=== PATIENT | female | born 1980 | race Caucasian/White ===

== ENCOUNTER 2018-05-21 09:02 | Emergency (ER) | payer OTHER ==
--- OUTSIDE RECORDS SUMMARY | 2018-05-21 09:15 | XMS REPORT ---
:1980 External Reference #:[id number] Author Organization [facility] Address [address], [address] [place] [address] Phone [phone] Care Team Providers Name Role Phone Kell Moore MD Care Team Information Outreach Assistant Unavailable Kell Moore MD Primary Care Physician Unavailable Payers Type Date Identification Numbers Payment Provider Subscriber Commercial Effective: Policy Number: Donaldo Sagastume 2005 [id number] Expires: 2015 Group Name: [employer] [address] [address] PayID: [id number] MACI Mcadams [id number] Commercial Policy Number: [id number] Lifetime Benefit Solution Vandana Sagastume Group Number: [id number] [address] [address] PayID: [id number] MACI Mcadams [id number] Problems Date Description Provider Status Onset: 12/28/2014 Mononeuritis Kell Moore MD Active Onset: 02/07/2015 Idiopathic peripheral neuropathy Kell Moore MD Active Onset: 08/20/2015 Acute serous otitis media Kell Moore MD Active Onset: 03/07/2015 Multiple sclerosis Kell Moore MD Active Onset: 02/21/2015 Edema Kell Moore MD Active Family History Date Family Member(s) Problem(s) Comments Father 60 Father Diabetes Mother No Current Problems Mother 58 Children 2 Siblings 1 Social History Type Date Description Comments Marital Status Lives With Lives With Children Pets 2 cats Occupation floral mgr, 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 Vitamin D3 09/09 Hx Capsules 5000Unit 1 by mouth Oscar, every day MD Kell - 04/07 Return To Work 09/09 Hx Vandana september G35 Oscar return to MD Kell - work, 01/28 full-time, modified schedule; please allow her to sit every hour for 7.5 minutes as needed. Amoxicillin/Cl 08/19 Hx Tablets 875-125mg 20tab 1 by mouth H65.01 Melgarulanate /2015 s twice a day MD Kell Potassium - 09/09 Prednisone 08/14 Hx Tablets 20mg 10tab 2 by mouth H69.91 Vincent, s every day x 5 Jenniferl - days eigh, [facility] 08/17 Nasonex 08/14 Hx Suspension 50mcg/Act 34gm one spray H69.91 [place] each nostril Jenniferl - twice a day eigh, [facility] 09/09 Antipyrine-Wilson 08/14 Hx Solution 5.4-1.4% QS one to two H69. beena, zocaine drops right Jenniferl - ear twice a eigh, [facility] 09/09 day as needed for pain Copaxone 04/11 Hx Soln 40mg/ml 1 ml im tid Oscar, Prefill roch. MD Kell - Syringe neurologist 06/11 Out Of Work 03/07 Hx due to G35 Oscar neurological MD Kell - illness 09/09 begiining 03/08/15, extending to 09/13/15. Triamterene/Hy 02/21 Hx Capsules 37.5-25mg 30cap take 1 by R60.9 lai Moore s mouth every MD Kell renny - morning 03/07 Prednisone 00/00 Hx Tablets 10mg take by mouth Unknown /0000 as directed - 03/07 Nortriptyline 00/00 Hx Capsules 10mg take 1 to 3 Unknown HCL /0000 capsules - Every Night 06/11 as directed Triamterene/Hy 00/00 Hx Capsules 37.5-25mg take 1 as R60.9 Unknown drochlorothiaz /0000 needed renny - 06/11 Copaxone 00 Hx Soln 40mg/ml every other Unknown /0000 Prefill day 1ML/Im - Syringe 04/07 Nortriptyline 00 Hx Capsules 10mg 2 PO hs Unknown HCL /0000 - 04/07 Immunizations CPT Code Status Date Vaccine Lot # [id number] Given 04/07/2016 Influenza Virus Vaccine Split Virus Use For [id number] Individual 3Yr Older [id number] Given 06/11/2015 Influenza Vaccine (Fluzone) Age 3 And Older [id number] Given 06/11/2015 Pneumococcal Conjugate Vaccine 13 Valent For [id number] Intramuscular Use 97063 Given 04/12/2009 flu vaccination [id number] Given 04/12/2009 H1N1 Immuniation Adminstration 98844 Given 02/06/2009 flu vaccination Vital Signs Date Vital Result Comment 05/13/2017 BP Systolic Sitting Left Arm 112 mmHg BP Diastolic Sitting Left Arm 78 mmHg Body Temperature 97.3 F Heart Rate 70 /min Height 65 inches 5'5" Weight 208.00 lb BMI (Body Mass Index) 34.6 kg/m2 BSA (Body Surface Area) 2.01 m2 [place] body weight in kilograms 57 O2 % BldC Oximetry 98 % 01/28/2017 BP Systolic 103 mmHg BP Diastolic 70 mmHg Heart Rate 70 /min Height 65.25 inches 5'5.25" Weight 201.00 lb BMI (Body Mass Index) 33.2 kg/m2 BSA (Body Surface Area) 1.99 m2 [place] body weight in kilograms 57 04/07/2016 BP Systolic Sitting Left Arm 122 mmHg BP Diastolic Sitting Left Arm 82 mmHg Body Temperature 98.9 F Heart Rate 76 /min Respiratory Rate 16 /min Height 65.25 inches 5'5.25" Weight 199.00 lb BMI (Body Mass Index) 32.9 kg/m2 BSA (Body Surface Area) 1.98 m2 [place] body weight in kilograms 57 Last Menstrual Period [id number] 09/10/2015 BP Systolic Sitting Left Arm 122 mmHg BP Diastolic Sitting Left Arm 74 mmHg Heart Rate 78 /min Respiratory Rate 19 /min Height 67 inches 5'7" Weight 199.00 lb BMI (Body Mass Index) 31.2 kg/m2 BSA (Body Surface Area) 2.02 m2 08/20/2015 BP Systolic Sitting Left Arm 118 mmHg BP Diastolic Sitting Left Arm 72 mmHg Body Temperature 99.0 F Height 67 inches 5'7" Weight 198.00 lb BMI (Body Mass Index) 31.0 kg/m2 BSA (Body Surface Area) 2.01 m2 08/15/2015 BP Systolic 112 mmHg BP Diastolic 66 mmHg Body Temperature 98.2 F Height 67 inches 5'7" Weight 196.00 lb BMI (Body Mass Index) 30.7 kg/m2 BSA (Body Surface Area) 2.00 m2 06/11/2015 BP Systolic 108 mmHg BP Diastolic 84 mmHg Heart Rate 60 /min Respiratory Rate 21 /min Weight 194.38 lb 03/07/2015 BP Systolic 110 mmHg BP Diastolic 80 mmHg Heart Rate 76 /min Respiratory Rate 20 /min Weight 191.00 lb 02/21/2015 BP Systolic Sitting Left Arm 104 mmHg BP Diastolic Sitting Left Arm 66 mmHg Heart Rate 76 /min Respiratory Rate 19 /min Height 67 inches 5'7" Weight 185.00 lb BMI (Body Mass Index) 29.0 kg/m2 BSA (Body Surface Area) 1.96 m2 02/07/2015 BP Systolic 110 mmHg BP Diastolic 78 mmHg Body Temperature 99.4 F Heart Rate 76 /min Respiratory Rate 20 /min Height 67 inches 5'7" Weight 187.00 lb BMI (Body Mass Index) 29.3 kg/m2 BSA (Body Surface Area) 1.97 m2 12/28/2014 BP Systolic 110 mmHg BP Diastolic 72 mmHg Heart Rate 68 /min Respiratory Rate 20 /min Height 67 inches 5'7" Weight 187.38 lb BMI (Body Mass Index) 29.3 kg/m2 BSA (Body Surface Area) 1.97 m2 Results Test Date Test Result H/L Range Note CBS W/Automated Diff 04/21/2017 White Blood Count 4.8 K/uL 3.1-10.7 1 Red Blood Count 3.96 M/uL 3.90-5.40 1 Hemoglobin 11.6 gm/dL 11.6-15.8 1 Hematocrit 35.9 % Low 36.0-46.1 1 Mean Cell Volume 90.7 fl 80.9-99.0 1 Mean Corpuscular HGB 29.3 pg 25.9-32.7 1 Mean Corpuscular HGB Conc 32.3 g/dL 30.8-34.3 1 Platelet Count 278 K/uL 150-400 1 Red Cell Distri Width SD 44.1 fl 3-47 1 Red Cell Distri Width %CV 13.9 % 11.7-14.4 1 Mean Platelet Volume 11.1 fL 8.9-12.4 1 Neut% 82.2 % High 40.4-72.8 1 Lymph % 6.9 % Low 20.0-42.0 1 [place] % 9.4 % 4.3-13.2 1 Eo% 1.3 % 0.0-6.6 1 Bas% 0.2 % 0.0-1.1 1 Neut# 3.95 K/uL 1.8-7.0 1 Lymph # 0.33 K/uL Low 1.0-4.0 1 [place] # 0.45 K/uL 0.3-0.9 1 Eos # 0.06 K/uL 0.0-0.5 1 Baso # 0.01 K/uL 0.0-0.1 1 Liver Function Tests 04/21/2017 Total Protein 7.5 g/dL 6.4-8.2 1 Albumin 3.6 g/dL 3.4-5.0 1 Globulin 3.9 g/dL 1.9-4.3 1 Alb/Glob 0.9 ratio 1 Bilirubin,Total 0.2 mg/dL 0.2-1.0 1 Bilirubin,Direct < 0.1 mg/dL 0.0-0.2 1 Bilirubin,Indirect 0.1 mg/dL 0.0-0.9 1 Sgot/Ast 16 U/L 15-37 1 SGPT/Alt 32 U/L 12-78 1 Alkaline Phosphatase 85 U/L 45-117 1 Liver Function Tests 07/28/2016 Total Protein 7.2 g/dL 6.4-8.2 1 Albumin 3.6 g/dL 3.4-5.0 1 Globulin 3.6 g/dL 1.9-4.3 1 Alb/Glob 1.0 ratio 1 Bilirubin,Total 0.3 mg/dL 0.2-1.0 1 Bilirubin,Direct < 0.1 mg/dL 0.0-0.2 1 Bilirubin,Indirect 0.2 mg/dL 0.0-0.9 1 Sgot/Ast 24 U/L 15-37 1 SGPT/Alt 41 U/L 12-78 1 Alkaline Phosphatase 89 U/L 45-117 1 CBS W/Automated Diff 07/28/2016 White Blood Count 3.5 K/uL 3.1-10.7 1 Red Blood Count 3.71 M/uL Low 3.90-5.40 1 Hemoglobin 10.8 gm/dL Low 11.6-15.8 1 Hematocrit 33.8 % Low 36.0-46.1 1 Mean Cell Volume 91.1 fl 80.9-99.0 1 Mean Corpuscular HGB 29.1 pg 25.9-32.7 1 Mean Corpuscular HGB Conc 32.0 g/dL 30.8-34.3 1 Platelet Count 254 K/uL 150-400 1 Red Cell Distri Width SD 43.3 fl 3-47 1 Red Cell Distri Width %CV 13.5 % 11.7-14.4 1 Mean Platelet Volume 11.3 fL 8.9-12.4 1 Neut% 79.4 % High 40.4-72.8 1 Lymph % 8.9 % Low 20.0-42.0 1 [place] % 10.3 % 4.3-13.2 1 Eo% 1.1 % 0.0-6.6 1 Bas% 0.3 % 0.0-1.1 1 Neut# 2.76 K/uL 1.8-7.0 1 Lymph # 0.31 K/uL Low 1.0-4.0 1 [place] # 0.36 K/uL 0.3-0.9 1 Eos # 0.04 K/uL 0.0-0.5 1 Baso # 0.01 K/uL 0.0-0.1 1 Laboratory test finding 02/09/2015 Nmo Igg Serum <1.5 U/mL 0.0-3.0 2 Laboratory test finding 12/28/2014 Vitamin B12 627 pg/mL 193-986 3 Basic Metabolic Panel 12/28/2014 Glucose 84 mg/dL 74-106 BUN 12 mg/dL 7-18 Creatinine 0.7 mg/dL 0.6-1.3 Glom Filtration Rate, Estimate >60 mL/min >60 If >60 mL/min >60 4 BUN/Creat 17.1 ratio Sodium 139 mmol/L 136-145 Potassium 4.0 mmol/L 3.5-5.1 Chloride 106 mmol/L 98-107 Carbon Dioxide 29 mmol/L 21-32 Anion Gap 4 mEq/L Low 8-16 Calcium 9.4 mg/dL 8.5-10.1 Laboratory test finding 12/28/2014 Thyroid Stim Hormone 1.50 uIU/mL 0.36- 3.74 1 G35 2 Negative 0.0 - 3.0 Indeterminate 3.1 - 5.0 Positive >5.1 Results for this test are for research purposes only by the assay's gerontology aide. The performance characteristics of this product have not been established. Results should not be used as a diagnostic procedure without confirmation of the diagnosis by another medically established diagnostic product or procedure. Performed at: [address] [id number] [place] Operator: Julio César Daniel MD, Phone: [phone] QUERY: Is the Patient Fasting? N 4 Note: Persistent reduction for 3 months or more in an eGFR <60 mL/min/1.73 m2 defines CKD. Patients with eGFR values >/=60 mL/min/1.73 m2 may also have CKD if evidence of persistent proteinuria is present. The original MDRD equation for estimated GFR is not valid for patients less than 18 years of age. Additional information may be found at www.kdoqi.org. Procedures Date CPT Code Description Status 01/18/2018 49059 Retina Completed 01/18/2018 36617 Eye Exam Est Patient Comprehensive Completed 06/01/2017 Mammogram Completed 01/16/2017 30936 Eye Exam Est Patient Comprehensive Completed 01/16/2017 98256 Retina Completed 01/16/2016 87479 Retina Completed 10/12/2015 91276 Retina Completed 10/12/2015 07664 Eye Exam New Patient Comprehensive Completed 06/09/2015 25 Disability Form Completed 02/09/2015 Mammogram Completed 09/23/2010 94540 Pulse Oximetry Completed 04/13/2009 86740 Section Only Completed 03/27/2009 33388 Antepartum 7 Or More Total Office Visit Completed 03/13/2009 29882 Antepartum 7 Or More Total Office Visit Completed 02/20/2009 41432 Antepartum 7 Or More Total Office Visit Completed 02/06/2009 82447 Antepartum 7 Or More Total Office Visit Completed 01/16/2009 62678 Antepartum 7 Or More Total Office Visit Completed 12/14/2008 73659 Antepartum 7 Or More Total Office Visit Completed 11/06/2008 19061 Antepartum 7 Or More Total Office Visit Completed Encounters Type Date Location Provider CPT E/M Dx Office Visit 01/28/2017 3:30p [place] [address] Office Visit 04/07/2016 11:00a Family Medicine [place] Faustino Rachel [address] J02.9 DOUGLAS Rosado, MARA-C Z23 Office Visit 01/16/2016 9:00a [place] [address] G35 Office Visit 09/10/2015 11:00a [facility] Kell Payne [address] G35 Office Visit 08/20/2015 10:45a [facility] Kell Payne 41324 H65.01 MD Office Visit 08/15/2015 10:30a [facility] DOUGLAS Kaur 22491 H69.91 MARA Funes Office Visit 06/11/2015 11:15a [facility] Kell Payne 49881 G35 Z23 Office Visit 03/07/2015 11:00a [place] [address] G35 R60.9 Office Visit 02/21/2015 1:00p [place] [address] R60.9 Office Visit 02/07/2015 2:15p [place] [address] 356.8 Office Visit 12/28/2014 2:45p [place] [address] 355.9 Plan of Care Future Appointment(s):01/21/2019 8:45 am - Paresh Alarcon MD at [email or web address]/ 20/2018 - Paresh Alarcon MDG35 Multiple sclerosisComments:- no sign of optic neuritis- no sign of vasculitis or retinitis- no sign of macular edema clinicallyor on oct- no ophthalmic contraindication to continuing gilenya; if stops gilenya, will not continuewith oct macula- letter to primary and neurology - amsler grid 1 year examFollow up:1 year exam
[2018-05-21 09:20] VITALS: BP 121/74
--- NOTE | 2018-05-21 09:33 | UC ---
Throat Pain/Nasal David HPI - HPI Summary HPI Summary: sinus pain and pressure x one week very thing yellow nasal drainage + nasal congestion , cough , pnd no fever, no chills - History of Current Complaint Chief Complaint: UCGeneralIllness Stated Complaint: SINUS COMPLAINT Time Seen by Provider: 05/21/18 09:20 Hx Obtained From: Patient Hx Last Menstrual Period: 04/30/18 Onset/Duration: Gradual Onset, Lasting Days - 7, Still Present Severity: Moderate Pain Intensity: 0 Cough: Nonproductive Associated Signs & Symptoms: Positive: Sinus Discomfort, Nasal Discharge. Negative: Dysphagia, FB Sensation, Drooling, Wheezing, Hoarseness, Fever, Vomiting, Rash - Allergies/Home Medications Allergies/Adverse Reactions: Allergies Allergy/AdvReac Type Severity Reaction Status Date / Time gabapentin Allergy Rash Verified 05/21/18 09:17 Home Medications: Home Medications Fingolimod (NF) [[employer]] 0.5 mg PO DAILY 05/21/18 [History Confirmed 05/21/18] PMH/Surg Hx/FS Hx/Imm Hx - Additional Past Medical History Additional PMH: MS - Surgical History Surgical History: Yes Surgery Procedure, Year, and Place: C- SECTIONS 2005 & 2008 W/ TUBAL LIGATION. T&A - Family History Known Family History: Negative: Diabetes - Social History Alcohol Use: None Substance Use Type: None Smoking Status (MU): Never Smoked Tobacco Review of Systems All Other Systems Reviewed And Are Negative: Yes Constitutional: Positive: Negative Skin: Positive: Negative Eyes: Positive: Negative ENT: Positive: Sore Throat, Nasal Discharge, Sinus Congestion, Sinus Pain/ Tenderness Respiratory: Positive: Cough Cardiovascular: Positive: Negative Is Patient Immunocompromised?: No Physical Exam Triage Information Reviewed: Yes Appearance: Well-Appearing, No Pain Distress, Well-Nourished Vital Signs: Initial Vital Signs Temp 98.6 F 05/21/18 09:15 Pulse 78 05/21/18 09:15 Resp 16 05/21/18 09:15 BP 121/74 05/21/18 09:15 Pulse Ox 100 05/21/18 09:15 Vital Signs Reviewed: Yes Eye Exam: Normal Eyes: Positive: Conjunctiva Clear ENT: Positive: Normal ENT inspection, Hearing grossly normal, Pharyngeal erythema, Nasal congestion, Nasal drainage, TMs normal. Negative: TM bulging, TM dull, TM red, Tonsillar swelling, Tonsillar exudate Neck: Positive: Supple, Nontender, No Lymphadenopathy Respiratory: Positive: Chest non-tender, Lungs clear, Normal breath sounds, No respiratory distress Cardiovascular: Positive: RRR, No Murmur, Pulses Normal Skin Exam: Normal Throat Pain/Nasal Course/Dx - Differential Dx/Diagnosis Provider Diagnosis: Sinusitis Discharge - Sign-Out/Discharge Documenting (check all that apply): Patient Departure All imaging exams completed and their final reports reviewed: No Studies - Discharge Plan Condition: Stable Disposition: HOME Prescriptions: Amoxicillin/Clavulanate TAB* [Augmentin TAB 875*] 875 mg PO BID #20 tab Patient Education Materials: Sinusitis (ED) Referrals: Kell Moore MD [Primary Care Provider] - If Needed - Billing Disposition and Condition Condition: STABLE Disposition: Home
== END 2018-05-21 09:34 | disposition home or self-care (01) ==
LOC: UCCORT 09:02
DX: J32.9 Chronic sinusitis, unspecified (principal); J34.89 Other specified disorders of nose and nasal sinuses; Z88.8 Allergy status to other drugs, medicaments and biological substances
CPT/HCPCS: 99212; G0463

== ENCOUNTER 2019-04-15 09:33 | Emergency (ER) | payer OTHER ==
[2019-04-15 12:13] VITALS: BP 112/73
--- NOTE | 2019-04-15 12:20 | UC ---
Lower Extremity/Ankle HPI - HPI Summary HPI Summary: 38 y/o female presents to the urgent care c/o Pt states starting 6 days ago she has right foot pain but no known injury. - History of Current Complaint Chief Complaint: UCLowerExtremity Stated Complaint: RT FOOT PAIN Time Seen by Provider: 04/15/19 12:10 Hx Obtained From: Patient Hx Last Menstrual Period: March?-tubal ligation ?: No - Pt declines test Onset/Duration: Gradual Onset, Lasting Days - 7 days, Still Present Severity Initially: Mild Severity Currently: Moderate Pain Intensity: 5 - w/ walking Pain Scale Used: 0-10 Numeric Aggravating Factor(s): Ambulation Alleviating Factor(s): Rest, OTC Meds - Tylenol PO Able to Bear Weight: Yes - Risk Factors Gout Risk Factors: Negative DVT Risk Factors: Negative Septic Arthritis Risk Factor: Negative - Allergies/Home Medications Allergies/Adverse Reactions: Allergies Allergy/AdvReac Type Severity Reaction Status Date / Time gabapentin Allergy Rash Verified 04/15/19 12:13 PMH/Surg Hx/FS Hx/Imm Hx Previously Healthy: Yes Other Neurological History: Multiple sclerosis, Brain aneurysm - Surgical History Surgical History: Yes Surgery Procedure, Year, and Place: 2 C SECTIONS. T&A - Family History Known Family History: Negative: Diabetes - Social History Alcohol Use: None Substance Use Type: None Smoking Status (MU): Never Smoked Tobacco Review of Systems All Other Systems Reviewed And Are Negative: Yes Constitutional: Positive: Negative Skin: Positive: Negative Eyes: Positive: Negative ENT: Positive: Negative Respiratory: Positive: Negative Cardiovascular: Positive: Negative Gastrointestinal: Positive: Negative Genitourinary: Positive: Negative Motor: Positive: Negative Neurovascular: Positive: Negative Musculoskeletal: Positive: Decreased ROM - right foot, Other: - RT foot pain Neurological: Positive: Negative Psychological: Positive: Negative Is Patient Immunocompromised?: No Physical Exam - Summary Physical Exam Summary: Vital Signs Reviewed: Yes General : well developed, well nourished female w/o any apparent distress Eyes: Positive: Conjunctiva Clear - PERRLA, EOMI ENT: Positive: Normal ENT inspection, Hearing grossly normal, Pharynx normal, TMs normal Neck: Positive: Supple, Nontender, No Lymphadenopathy Respiratory: Positive: Chest non-tender, Lungs clear, Normal breath sounds, No respiratory distress Cardiovascular: Positive: RRR, No Murmur, Pulses Normal Abdomen Description: Positive: Nontender, No Organomegaly, Soft. Negative: CVA Tenderness (R), CVA Tenderness (L) Bowel Sounds: Positive: Present Musculoskeletal: Positive: Strength Intact, ROM Intact, No Edema, Other: - Foot/ Toes: Pt is able to bear weight but ambulate with mild limping. RT foot :No surface trauma, ecchymosis, erythema, lesions, ulcers or break in skin integrity. The R foot is without obvious asymmetry or deformity when compared to the L foot. No bony step-off, No tenderness to palpation over toes, point tenderness over the dorsal side of mid foot and base of the 4th and 5th metatarsal and sole at the same level, no tenderness of hindfoot, Decrease plantar/dorsiflexion, inversion/eversion due to pain. Distal motor and neurovascular status are intact. Neurological Exam: Normal Psychological Exam: Normal Skin Exam: Normal Triage Information Reviewed: Yes Vital Signs: Initial Vital Signs Temp 98.5 F 04/15/19 12:07 Pulse 71 04/15/19 12:07 Resp 14 04/15/19 12:07 BP 112/73 04/15/19 12:07 Pulse Ox 100 04/15/19 12:07 Lower Extremity Course/Dx - Differential Dx/Diagnosis Differential Diagnosis/HQI/PQRI: Arthritis, Fracture (Closed), Gout, Sprain, Strain, Tendonitis Provider Diagnosis: Right foot pain, Tendinitis of right foot Discharge ED - Sign-Out/Discharge Documenting (check all that apply): Patient Departure - D/C home All imaging exams completed and their final reports reviewed: Yes - Discharge Plan Condition: Stable Disposition: HOME Patient Education Materials: Tendinitis (ED) Referrals: Kell Moore MD [Primary Care Provider] - 1 Week [facility] [Provider Group] - 1 Week Additional Instructions: 1-Please take Tylenol PO q6hrs prn as directed to alleviate pain and swelling. 2-Please apply ice, keep your foot immobilized with an Issa bandage and use the post-op shoe you have at home to avoid too much flexion of your foot. Avoid strenuous exercise or standing for long periods of time. Elevate your foot at night. If not improvement of symptoms please f/u w/ Orthopedic DR from Sports Medicine in 1 week for further management 3- Please f/u with your PCP at [facility] in your near appt for further evaluation and treatment of your MS. 4- If you develop fever, severe pain with swelling please go immediately to the ER for further management - Billing Disposition and Condition Condition: STABLE Disposition: Home
== END 2019-04-15 13:54 | disposition home or self-care (01) ==
LOC: UCCORT 09:33
DX: M77.9 Enthesopathy, unspecified (principal); M79.671 Pain in right foot; Z88.8 Allergy status to other drugs, medicaments and biological substances
CPT/HCPCS: 99211; G0463